=== PATIENT | male | born 1960 | race Caucasian/White ===

== ENCOUNTER 2018-10-07 10:22 | Day surgery (SDC) | payer MEDICARE ==
[~2018-10-07] VITALS: Ht 172.7 cm; Wt 80.4 kg
[~2018-10-07 10:22] MED LIST: BUPIVACAINE/PF-EPI 0.5% 1:200K ONE
[2018-10-07 10:57] VITALS: BP 116/72
[2018-10-07] MEDS ORDERED: LACTATED RINGERS 1,000 ML IV SCH (11:01)
[2018-10-07] MEDS ORDERED: FERROUS SULFATE PO (11:03)
[2018-10-07] MEDS ORDERED: TYLENOL PO (11:03)
[2018-10-07] MEDS ORDERED: POTASSIUM PO (11:03)
[2018-10-07] MEDS ORDERED: MULTIVITAMIN PO (11:03)
[2018-10-07] MEDS ORDERED: FENTANYL PF 100 MCG/2ML ONE ×2 (12:11→14:32)
[2018-10-07] MEDS ORDERED: MIDAZOLAM 1 MG/ML, 2ML ONE (12:12)
[2018-10-07] MEDS ORDERED: LABETALOL 5MG/ML, 20ML IV PRN (13:00)
[2018-10-07] MEDS ORDERED: ACETAMINOPHEN 325 MG TABLET PO PRN (13:00)
[2018-10-07] MEDS ORDERED: LORazepam 2 MG/ML, 1ML IVPush PRN (13:00)
[2018-10-07] MEDS ORDERED: MEPERIDINE/PF 25MG/0.5ML IVPush PRN (13:00)
[2018-10-07] MEDS ORDERED: HYDROmorphone 2 MG/ML, 1ML IVPush PRN (13:00)
[2018-10-07] MEDS ORDERED: METOCLOPRAMIDE 5 MG/ML, 2ML IV PRN (13:00)
[2018-10-07] MEDS ORDERED: OXYcodone 5 MG/5 ML ORAL.SOL UDC ONE ×2 (14:02→14:32)
[2018-10-07] MEDS: OXYcodone 5 MG/5 ML ORAL.SOL UDC PO PRN ×2 (14:03→14:34)
[2018-10-07] MEDS: FENTANYL PF 100 MCG/2ML IV PRN ×2 (14:33→14:41)
[2018-10-07] MEDS ORDERED: ROCURONIUM 10MG/ML,5ML ONE (15:41)
[2018-10-07] MEDS ORDERED: PROPOFOL 10 MG/ML, 20ML ONE (15:41)
[2018-10-07] MEDS ORDERED: KETOROLAC 30 MG/1 ML ONE (15:41)
[2018-10-07] MEDS ORDERED: ONDANSETRON 2MG/ML, 2ML ONE (15:41)
[2018-10-07] MEDS ORDERED: GLYCOPYRROLATE 0.2MG/1ML, 5ML ONE (15:41)
[2018-10-07] MEDS ORDERED: NEOSTIGMINE 1 MG/ML, 10ML ONE (15:41)
[2018-10-07] MEDS ORDERED: CEFAZOLIN 1,000 MG ONE (15:41)
[2018-10-07] MEDS ORDERED: DEXAMETHASONE 4 MG/ML, 1ML ONE (15:41)
== END 2018-10-07 17:15 | disposition home or self-care (01) ==
LOC: OUT 10:22
PROVIDERS: ATTEND Surgery
DX: K40.90 Unilateral inguinal hernia, without obstruction or gangrene, not specified as recurrent (principal); D17.6 Benign lipomatous neoplasm of spermatic cord; F19.90 Other psychoactive substance use, unspecified, uncomplicated; Z98.890 Other specified postprocedural states
CPT/HCPCS: 49650; 93005; C1781; J0690; J1100; J1885; J2250; J2405; J2704; J2710; J3010; J3490; J7120; S2900

== ENCOUNTER 2021-03-25 20:32 | Emergency (ER) | payer SELFPAY ==
[~2021-03-25] VITALS: Ht 172.7 cm; Wt 80.4 kg
[~2021-03-25 20:32] MED LIST changes: -BUPIVACAINE/PF-EPI 0.5% 1:200K ONE; +FERROUS SULFATE PO; +MULTIVITAMIN PO; +POTASSIUM PO; +TYLENOL PO
[2021-03-25 20:34] VITALS: BP 136/76
[2021-03-25] MEDS ORDERED: KETOROLAC 30 MG/1 ML IM ONE (21:30)
[2021-03-25] MEDS ORDERED: KETOROLAC 30 MG/1 ML ONE (21:30)
[2021-03-25] MEDS ORDERED: DIAZEPAM 5 MG TABLET ONE (21:30)
[2021-03-25] MEDS ORDERED: DIAZEPAM 5 MG TABLET PO ONE (21:30)
== END 2021-03-25 21:57 | disposition home or self-care (01) ==
LOC: ED 21:00
DX: S39.012A Strain of muscle, fascia and tendon of lower back, initial encounter (principal); F17.210 Nicotine dependence, cigarettes, uncomplicated; X58.XXXA Exposure to other specified factors, initial encounter; Y93.89 Activity, other specified; Y92.89 Other specified places as the place of occurrence of the external cause; Y99.8 Other external cause status
CPT/HCPCS: 96372; 99283; J1885